=== PATIENT | male | born 1970 | race Caucasian/White ===

== ENCOUNTER 2025-03-05 08:37 | Day surgery (SDC) | payer OTHER ==
[2025-02-27 14:31] VITALS: BMI 26.2
[2025-03-05] MEDS ORDERED: Sevoflurane 250 ML INH ANEST BOTTLE ONE (09:01)
[2025-03-05 09:27] LABS: Hematocrit 46.7 % (38.8-50.0); Hemoglobin 16.6 g/dL (13.5-17.5)
[2025-03-05 09:41] LABS: Anion Gap 15 mmol/L (10-20); BUN (Urea Nitrogen) 10 mg/dL (8.4-25.7); Calc. Creatinine Clearance 114 mL/min (70-130); Calcium 9.5 mg/dL (7.8-10.44); Carbon Dioxide 23 mmol/L (22-29); Chloride 105 mmol/L (98-107); Glucose 98 mg/dL (70-105); Potassium 4.1 mmol/L (3.5-5.1); Sodium 139 mmol/L (136-145)
[2025-03-05] MEDS ORDERED: Lidocaine 1% w/Epinephrine 1:200K 30 ML VIAL ONE (09:48)
[2025-03-05] MEDS ORDERED: PROPOFOL 20 ML ONE (09:51)
[2025-03-05] MEDS ORDERED: Lidocaine 1% PF 5 ML VIAL ONE (09:51)
[2025-03-05] MEDS ORDERED: Rocuronium Bromide 10 MG/ML (10ML VIAL) ONE ×2 (09:51→10:40)
[2025-03-05] MEDS ORDERED: PHENYLEPHRINE-NS 100 MCG/ML 10 ML SYRINGE ONE (11:03)
[2025-03-05] MEDS ORDERED: SUGAMMADEX SODIUM 200 MG/2 ML VIAL ONE (11:14)
[2025-03-05] MEDS ORDERED: HYDROcodone/Acetaminophen 5/325 mg Tablet ONE (12:31)
== END 2025-03-05 13:00 | disposition home or self-care (01) ==
LOC: CSHSDC 08:37
PROVIDERS: ATTEND Specialist
PROC: 09U70JZ Supplement Right Tympanic Membrane with Synthetic Substitute, Open Approach (ICD-10-PCS; principal; 2025-03-05)
DX: H72.91 Unspecified perforation of tympanic membrane, right ear (principal); H90.A31 Mixed conductive and sensorineural hearing loss, unilateral, right ear with restricted hearing on the contralateral side; H90.A22 Sensorineural hearing loss, unilateral, left ear, with restricted hearing on the contralateral side; H69.81 Other specified disorders of Eustachian tube, right ear; E78.00 Pure hypercholesterolemia, unspecified; Z98.890 Other specified postprocedural states; Z79.899 Other long term (current) drug therapy
CPT/HCPCS: 36415; 80048; 85014; 85018; 93005; 93010; J0169; J1100; J2704